=== PATIENT | male | born 1945 | race Caucasian/White ===

== ENCOUNTER 2017-10-07 13:58 | Observation (INO) | payer MEDICARE ==
[~2017-10-07] VITALS: Ht 172.7 cm; Wt 128.3 kg
[2017-10-07 14:19] LABS: BASOPHILS PERCENT AUTO 1 % (0-2); EOSINOPHILS ABSOLUTE AUTO 0.41 K/mm3 (0.00-0.68); EOSINOPHILS PERCENT AUTO 4 % (0-6); Hematocrit 48.4 % (37.0-53.0); Hemoglobin 16.4 g/dL (13.5-17.5); IMMATURE GRAN ABSOLUTE AUTO 0.05 K/mm3 (0.00-0.10); IMMATURE GRAN PERCENT AUTO 0 % (0-1); LYMPHOCYTES ABSOLUTE AUTO 2.19 K/mm3 (0.84-5.20); LYMPHOCYTES PERCENT AUTO 19 % (21-46); MONOCYTES ABSOLUTE AUTO 1.52 K/mm3 (0.16-1.47); MONOCYTES PERCENT AUTO 13 % (4-13); Mean Corpuscular HGB 30.7 pg (26.0-34.0); Mean Corpuscular HGB Conc 33.9 g/dL (31.5-36.5); Mean Corpuscular Volume 91 fL (80-100); Mean Platelet Volume 10.9 fL (9.1-12.4); NEUTROPHILS ABSOLUTE AUTO 7.59 K/mm3 (1.96-9.15); NEUTROPHILS PERCENT AUTO 64 % (41-73); Platelet Count 218 K/mm3 (150-400); RDW Coefficient Variation 14.4 % (11.7-14.2); RDW Standard Deviation 47.6 fL (35.1-46.3); Red Blood Cell Count 5.34 M/mm3 (4.30-5.90); White Blood Cell Count 11.86 K/mm3 (4.00-11.30)
[2017-10-07 14:34] LABS: Prothrombin Time Results 10.3 Sec (9.7-11.5)
[2017-10-07 14:45] LABS: Alanine Aminotransfer (ALT/SGP 130 U/L (12-78); Albumin, Blood 3.5 g/dL (3.4-5.0); Alk Phos 42 U/L (50-136); Anion Gap 10 mmol/L (6-16); Aspartate Aminotrans (AST/SGOT 68 U/L (12-37); Bilirubin, Total 0.5 mg/dL (0.1-1.0); Blood Urea Nitrogen 27 mg/dL (8-24); Bun/Creatinine Ratio 26.2 (12.0-20.0); CO2, Blood 21 mmol/L (21-32); Calcium, Blood 9.3 mg/dL (8.5-10.1); Chloride, Blood 112 mmol/L (98-108); Creatinine, Blood 1.03 mg/dL (0.60-1.20); Globulin, Blood 3.5 g/dL (2.2-4.0); Glomerular Filtration Rate >60 (60-); Glucose, Blood 110 mg/dL (70-99); Magnesium, Blood 2.1 mg/dL (1.6-2.4); Potassium, Blood 4.2 mmol/L (3.5-5.5); Sodium, Blood 143 mmol/L (136-145); Troponin I <0.015 ng/mL (0.000-0.040)
[2017-10-07 15:09] LABS: U Amphetamine Screen Not Detected; U Barbituate Screen Not Detected; U Benzodiazapine Screen Not Detected; U Buprenorphine Screen Not Detected; U Cannabinoids Screen Not Detected; U Cocaine Screen Not Detected; U Methadone Screen Not Detected; U Methamphetamine Screen Not Detected; U Opiates Screen Not Detected; U Oxycodone Screen Not Detected; U Phencyclidine Screen Not Detected; U Propoxyphene Screen Not Detected
[2017-10-07] MEDS ORDERED: ASPI81CH PO (17:38)
[2017-10-07] MEDS ORDERED: LISI5 PO (17:38)
[2017-10-07] MEDS ORDERED: Advair Hfa 230-12 GM (17:38)
[2017-10-07] MEDS ORDERED: ALLO300 PO (17:39)
[2017-10-08 05:30] LABS: BASOPHILS ABSOLUTE AUTO 0.08 K/mm3 (0.00-0.23); BASOPHILS PERCENT AUTO 1 % (0-2); EOSINOPHILS ABSOLUTE AUTO 0.43 K/mm3 (0.00-0.68); EOSINOPHILS PERCENT AUTO 4 % (0-6); Hematocrit 47.3 % (37.0-53.0); IMMATURE GRAN ABSOLUTE AUTO 0.04 K/mm3 (0.00-0.10); IMMATURE GRAN PERCENT AUTO 0 % (0-1); LYMPHOCYTES ABSOLUTE AUTO 2.18 K/mm3 (0.84-5.20); LYMPHOCYTES PERCENT AUTO 22 % (21-46); MONOCYTES ABSOLUTE AUTO 1.03 K/mm3 (0.16-1.47); MONOCYTES PERCENT AUTO 10 % (4-13); Mean Corpuscular HGB 30.2 pg (26.0-34.0); Mean Corpuscular HGB Conc 33.8 g/dL (31.5-36.5); Mean Corpuscular Volume 89 fL (80-100); NEUTROPHILS ABSOLUTE AUTO 6.16 K/mm3 (1.96-9.15); NEUTROPHILS PERCENT AUTO 62 % (41-73); Platelet Count 196 K/mm3 (150-400); RDW Coefficient Variation 14.5 % (11.7-14.2); RDW Standard Deviation 47.4 fL (35.1-46.3); Red Blood Cell Count 5.29 M/mm3 (4.30-5.90); White Blood Cell Count 9.92 K/mm3 (4.00-11.30)
[2017-10-08 05:50] LABS: Anion Gap 9 mmol/L (6-16); Blood Urea Nitrogen 24 mg/dL (8-24); Bun/Creatinine Ratio 30.6 (12.0-20.0); CO2, Blood 26 mmol/L (21-32); Calcium, Blood 9.1 mg/dL (8.5-10.1); Chloride, Blood 108 mmol/L (98-108); Creatinine, Blood 0.79 mg/dL (0.60-1.20); Glomerular Filtration Rate >60 (60-); Glucose, Blood 99 mg/dL (70-99); Potassium, Blood 3.9 mmol/L (3.5-5.5); Sodium, Blood 143 mmol/L (136-145)
[2017-10-08] MEDS ORDERED: LEVSOD50 PO (12:22)
[2017-10-08] MEDS ORDERED: Lopressor 25 mg25 MG PO (12:24)
[2017-10-08] MEDS ORDERED: XARELTO20 MG PO (12:25)
[2017-10-08] MEDS ORDERED: LISI20 PO (12:27)
== END 2017-10-08 13:02 | disposition home or self-care (01) ==
LOC: ER 13:58 → MEDS 13:59
PROVIDERS: Emergency Medicine; Hospitalist
DX: I48.91 Unspecified atrial fibrillation (principal); I48.92 Unspecified atrial flutter; I95.9 Hypotension, unspecified; I10 Essential (primary) hypertension; J45.909 Unspecified asthma, uncomplicated; M10.9 Gout, unspecified; M19.90 Unspecified osteoarthritis, unspecified site; R55 Syncope and collapse; J18.9 Pneumonia, unspecified organism; E03.9 Hypothyroidism, unspecified; R93.8 Abnormal findings on diagnostic imaging of other specified body structures; K21.9 Gastro-esophageal reflux disease without esophagitis; Z79.82 Long term (current) use of aspirin; Z79.899 Other long term (current) drug therapy
CPT/HCPCS: 36415; 71046; 71250; 80048; 80053; 83735; 83880; 84443; 84484; 85025; 85610; 87077; 87081; 93005; 93010; 93306; 94640; 94760; 96361; 96365; 96374; 96375; 99285; G0378; J0456; J0696; J7030; J7050; J7120

== ENCOUNTER → 2018-05-24 | Outpatient (CLI) | payer MEDICARE ==
[~2018-05-24] MED LIST: ALLO300 PO; ASPI81CH PO; Advair Hfa 230-12 GM; LEVSOD50 PO; LISI20 PO; LISI5 PO; Lopressor 25 mg25 MG PO; XARELTO20 MG PO
[2018-05-24 14:36] LABS: BASOPHILS ABSOLUTE AUTO 0.06 K/mm3 (0.00-0.23); BASOPHILS PERCENT AUTO 1 % (0-2); EOSINOPHILS ABSOLUTE AUTO 0.42 K/mm3 (0.00-0.68); EOSINOPHILS PERCENT AUTO 5 % (0-6); Hemoglobin 11.5 g/dL (13.5-17.5); IMMATURE GRAN ABSOLUTE AUTO 0.03 K/mm3 (0.00-0.10); IMMATURE GRAN PERCENT AUTO 0 % (0-1); LYMPHOCYTES ABSOLUTE AUTO 1.62 K/mm3 (0.84-5.20); LYMPHOCYTES PERCENT AUTO 20 % (21-46); MONOCYTES ABSOLUTE AUTO 0.96 K/mm3 (0.16-1.47); MONOCYTES PERCENT AUTO 12 % (4-13); Mean Corpuscular HGB 24.9 pg (26.0-34.0); Mean Corpuscular HGB Conc 31.1 g/dL (31.5-36.5); Mean Corpuscular Volume 80 fL (80-100); NEUTROPHILS ABSOLUTE AUTO 5.19 K/mm3 (1.96-9.15); NEUTROPHILS PERCENT AUTO 63 % (41-73); Platelet Count 192 K/mm3 (150-400); RDW Coefficient Variation 15.9 % (11.7-14.2); RDW Standard Deviation 45.3 fL (35.1-46.3); Red Blood Cell Count 4.61 M/mm3 (4.30-5.90); White Blood Cell Count 8.28 K/mm3 (4.00-11.30)
[2018-05-24 14:40] LABS: Anion Gap 9 mmol/L (6-16); Blood Urea Nitrogen 22 mg/dL (8-24); Bun/Creatinine Ratio 24.2 (12.0-20.0); CO2, Blood 26 mmol/L (21-32); Calcium, Blood 9.1 mg/dL (8.5-10.1); Chloride, Blood 105 mmol/L (98-108); Creatinine, Blood 0.91 mg/dL (0.60-1.20); Glomerular Filtration Rate >60 (60-); Glucose, Blood 103 mg/dL (70-99); Sodium, Blood 140 mmol/L (136-145)
[2018-05-24 16:21] LABS: Troponin I <0.015 ng/mL (0.000-0.040)
== END | disposition home or self-care (01) ==
LOC: LAB SHORT 14:32 → LAB EV 14:32
PROVIDERS: Physician Assistant Surgical
DX: R53.83 Other fatigue (principal)
CPT/HCPCS: 80048; 83880; 84484; 85025

== ENCOUNTER 2018-06-21 06:05 | Day surgery (SDC) | payer MEDICARE ==
--- NOTE | 2018-06-20 14:56 | NUR ---
PT'S ANGIOGRAM RESCHEDULED FOR TOMORROW. 20 G IV DISCONTINUED FROM LEFT AC WITH INTACT CANNULA.
[~2018-06-21] VITALS: Ht 177.8 cm; Wt 142.0 kg
[~2018-06-21 06:05] MED LIST changes: +ALBU90OI6 INH; +ATOR10 PO; +B Complex #11 EACH PO; +CHOL10002 PO; -Lopressor 25 mg25 MG PO; +NITR.4SL SL; +Norco 7.5-3251 EACH PO; +Toprol Xl50 MG PO; +Zantac150 MG PO
--- NOTE | 2018-06-21 11:00 | NUR ---
10CC AIR REMOVED FROM TR BAND. -BLEEDING OR SWELLING.
--- NOTE | 2018-06-21 11:30 | NUR ---
TR BAND REMOVED. PUNCTURE AREA CLEANED WITH NS. CLOTH DOT DRSG PLACED. R WRIST SPLINT REAPPLIED. IV REMOVED.
== END 2018-06-21 11:27 | disposition home or self-care (01) ==
LOC: MHTC 06:05
DX: I20.9 Angina pectoris, unspecified (principal); E66.01 Morbid (severe) obesity due to excess calories; I10 Essential (primary) hypertension; I48.92 Unspecified atrial flutter; Z79.01 Long term (current) use of anticoagulants; K21.9 Gastro-esophageal reflux disease without esophagitis; K57.90 Diverticulosis of intestine, part unspecified, without perforation or abscess without bleeding; Z87.891 Personal history of nicotine dependence; Z79.899 Other long term (current) drug therapy
CPT/HCPCS: 93458; 99152; 99153; C1760; C1769; C1887; C1894; J1644; J2250; J3010; J7030; Q9967

== ENCOUNTER → 2018-09-13 | Outpatient (CLI) | payer MEDICARE ==
[2018-09-12 10:31] LABS: Percent Saturation 9.4 % (20.0-50.0)
[2018-09-12 10:36] LABS: Albumin, Blood 3.5 g/dL (3.4-5.0); Anion Gap 6 mmol/L (6-16); Blood Urea Nitrogen 22 mg/dL (8-24); CO2, Blood 27 mmol/L (21-32); Calcium, Blood 9.2 mg/dL (8.5-10.1); Chloride, Blood 107 mmol/L (98-108); Glomerular Filtration Rate >60 (60-); Glucose, Blood 119 mg/dL (70-99); Phosphorus, Blood 3.3 mg/dL (2.5-4.9); Potassium, Blood 3.8 mmol/L (3.5-5.5); Sodium, Blood 140 mmol/L (136-145)
[2018-09-13 10:11] LABS: Protein, Urine Quantitative 24.7 mg/dL (0.0-11.9)
[2018-09-13 14:22] LABS: Stool Occult Bld Immuno 1 Negative (NEGATIVE)
== END | disposition home or self-care (01) ==
LOC: LAB SHORT 08:00 → LAB 08:00 → LAB FUT 09-04 10:15
PROVIDERS: Internal Medicine Nephrology
DX: Z12.11 Encounter for screening for malignant neoplasm of colon (principal); N18.2 Chronic kidney disease, stage 2 (mild); D63.1 Anemia in chronic kidney disease; N25.81 Secondary hyperparathyroidism of renal origin; E55.9 Vitamin D deficiency, unspecified; E78.00 Pure hypercholesterolemia, unspecified; D51.8 Other vitamin B12 deficiency anemias; D52.8 Other folate deficiency anemias; D50.9 Iron deficiency anemia, unspecified; R76.9 Abnormal immunological finding in serum, unspecified; R94.5 Abnormal results of liver function studies; R94.6 Abnormal results of thyroid function studies
CPT/HCPCS: 36415; 80069; 81050; 82043; 82274; 82306; 82570; 82607; 82728; 82746; 83540; 83550; 83970; 84156; 84443; 85018

== ENCOUNTER 2018-10-18 07:08 | Day surgery (SDC) | payer MEDICARE ==
[~2018-10-18] VITALS: Ht 177.8 cm; Wt 142.7 kg
[2018-10-18] MEDS ORDERED: CLOP75 PO (07:35)
[2018-10-18] MEDS ORDERED: FERSU300 PO (07:37)
--- NOTE | 2018-10-18 11:35 | NUR ---
PT TO RECOVERY ROOM POST PROCEDURE. PT IS DROWSY, BUT ROUSABLE AND ANSWERS QUESTIONS APPROPRIATELY. PT REPORTED FEELING NAUSEATED, NO EMESIS-TAKING SMALL SIPS OF WATER RECEIVED 8 MG ZORFRAN. PT REPORTS MOD DISCOMFOT L SHOULDER, 08/23; DENIES THE NEED FOR MEDICATION. MONITOR AFIB/AFLUTTER WITH OCCASIONAL A PACING 60'S, B/P 128/82, SPO2 94% RA. L CHEST SITE TELFA AND TEGADERM DRSG IN PLACE C,D,1.
--- NOTE | 2018-10-18 11:48 | NUR ---
PT REMAINS DROWSY, REPORTS NAUSEA RESOLVED AFTER ZOFRAN. PT REPORTS L SHOULDER DISCOMFORT REMAINS 5/, REQUESTING TYLENOL-MESSAGE LEFT AT DR MARI'S OFFICE.
--- NOTE | 2018-10-18 12:05 | NUR ---
PT RECEIVED 650MG PO TYLENOL FOR LEFT SHOULDER DISCOMFORT.
--- NOTE | 2018-10-18 16:31 | NUR ---
ASSUMED CARE PT ARRIVED TO UNIT VIA WHEELCHAIR. VS STABLE. O2 SATS REMAIN ABOVE 90% ON RA. PT COMPLAINS OF SHOULDER PAIN IN LEFT SHOULDER WALL. DRESSING INTACT WITH NO SWELLING, BLEEDING, OR HEMATOMA NOTED. PT STATES PAIN IS TOLERABLE. HR SHOWS SINUS WITH OCCAISIONAL PVC. RATE IS 80. PT ORIENTED TO ROOM. WILL CONTINUE TO MONITOR CLOSELY.
--- NOTE | 2018-10-18 17:58 | NUR ---
SHIFT SUMMARY PT STABLE AT THIS TIME. HR SHOWS NSR WITH A RATE 80'S. NO OTHER CHANGES AT THIS TIME. PT ABLE TO TRANSFER TO BATHROOM NEEDED WITH SBA. NO OTHER CHANGES AT THIS TIME. WILL CONTINUE TO MONITOR AND REPORT TO ONCOMING RN. CALL LIGHT IN REACH.
--- NOTE | 2018-10-19 05:56 | NUR ---
PATIENT IN AND OUT OF AFIB/AFLUTTER. PATIENT DENIES ANY SYMPTOMS. PATIENT HAS NEW PACEMAKER UP LEFT CHEST. DRESSING INTACT WITH SMALL AMOUT OF DRAINAGE. PATIENT GIVEN APAP AT 0030. PATIENT HAD SOME DIFFICULTIES GETTING CPAP ON DUE TO NOT BEING ABLE TO BRING UP LEFT ARM. PATIENT TROUBLE SLEEPING IN THE BED SLEPT IN RECLINER ON AND OFF THROUGH THE NIGHT.
[2018-10-19] MEDS ORDERED: CEPH500 PO (10:13)
--- NOTE | 2018-10-19 11:21 | NUR ---
PT ALERT AND ORIENTED. VS STABLE. ORDERS FOR DISCHARGE THIS AM. DR. MILLIGAN IN TO DISCUSS AFTER CARE OF PACEMAKER. PT EDUCATED ON ACTIVITY RESTRICTIONS. PT EDUCATED ON NEW MEDICATION REGIMEN. IV REMOVED. TELEMETRY REMOVED. ALL QUESTIONS ANSWERED. PT TO BE TAKEN OUT BY WHEELCHAIR.
== END 2018-10-19 11:25 | disposition home or self-care (01) ==
LOC: PCU 07:08 → MHTC 07:08 → PCU 16:12 → MHTC 10-19 11:25
PROC: 02H63JZ Insertion of Pacemaker Lead into Right Atrium, Percutaneous Approach (ICD-10-PCS; principal; 2018-10-18)
PROC: 0JH606Z Insertion of Pacemaker, Dual Chamber into Chest Subcutaneous Tissue and Fascia, Open Approach (ICD-10-PCS; principal; 2018-10-18)
PROC: 02HK3JZ Insertion of Pacemaker Lead into Right Ventricle, Percutaneous Approach (ICD-10-PCS; principal; 2018-10-18)
DX: I49.5 Sick sinus syndrome (principal); I48.92 Unspecified atrial flutter; I48.91 Unspecified atrial fibrillation; I44.0 Atrioventricular block, first degree; I45.10 Unspecified right bundle-branch block; I10 Essential (primary) hypertension; E78.5 Hyperlipidemia, unspecified; G47.33 Obstructive sleep apnea (adult) (pediatric); N40.0 Benign prostatic hyperplasia without lower urinary tract symptoms; K76.0 Fatty (change of) liver, not elsewhere classified; E66.01 Morbid (severe) obesity due to excess calories; D64.9 Anemia, unspecified; R42 Dizziness and giddiness; K57.90 Diverticulosis of intestine, part unspecified, without perforation or abscess without bleeding; K21.9 Gastro-esophageal reflux disease without esophagitis; Z87.891 Personal history of nicotine dependence; Z79.899 Other long term (current) drug therapy; Z79.02 Long term (current) use of antithrombotics/antiplatelets; Z79.01 Long term (current) use of anticoagulants
CPT/HCPCS: 33208; 71045; 71046; 99152; 99153; A9270; C1785; C1898; J0360; J0690; J1644; J2250; J2405; J3010; J7030; J7040

== ENCOUNTER → 2020-04-19 | Outpatient (CLI) | payer MEDICARE, BC ==
[~2020-04-19] MED LIST changes: +CEPH500 PO; +CLOP75 PO; +FERSU300 PO
[2020-04-19 13:55] LABS: BASOPHILS ABSOLUTE AUTO 0.06 K/mm3 (0.00-0.23); BASOPHILS PERCENT AUTO 1 % (0-2); EOSINOPHILS ABSOLUTE AUTO 0.19 K/mm3 (0.00-0.68); EOSINOPHILS PERCENT AUTO 2 % (0-6); Hematocrit 47.2 % (37.0-53.0); IMMATURE GRAN ABSOLUTE AUTO 0.03 K/mm3 (0.00-0.10); IMMATURE GRAN PERCENT AUTO 0 % (0-1); LYMPHOCYTES ABSOLUTE AUTO 1.14 K/mm3 (0.84-5.20); LYMPHOCYTES PERCENT AUTO 13 % (21-46); MONOCYTES ABSOLUTE AUTO 0.79 K/mm3 (0.16-1.47); MONOCYTES PERCENT AUTO 9 % (4-13); Mean Corpuscular HGB Conc 31.8 g/dL (31.5-36.5); Mean Corpuscular Volume 88 fL (80-100); NEUTROPHILS ABSOLUTE AUTO 6.66 K/mm3 (1.96-9.15); NEUTROPHILS PERCENT AUTO 75 % (41-73); Platelet Count 176 K/mm3 (150-400); RDW Coefficient Variation 17.6 % (11.7-14.2); RDW Standard Deviation 56.7 fL (35.1-46.3); Red Blood Cell Count 5.35 M/mm3 (4.30-5.90); White Blood Cell Count 8.87 K/mm3 (4.00-11.30)
[2020-04-19 14:04] LABS: Mean Platelet Volume 12.1 fL (9.1-12.4)
== END ==
LOC: LAB 13:00 → LAB SHORT 13:00
PROVIDERS: Family Medicine
DX: D64.9 Anemia, unspecified (principal)
CPT/HCPCS: 82728; 83540; 83550; 85025

== ENCOUNTER → 2021-06-01 | Outpatient (CLI) | payer MEDICARE, BC ==
[~2021-06-01] MED LIST changes: +ATOR20 PO; +Cialis5 MG; +DILT120 PO; +ELEMENTAL ZINC30 MG PO; +FLUT1DIS2; +MAGCHL64ER; +MAGNESIUM250 MG PO; +PRESERVISION A1 EAC1; +Primidone50 MG PO; +Prinivil10 MG PO; +Vitamin B Comple1 EA PO
[2021-06-01 10:39] LABS: BASOPHILS ABSOLUTE AUTO 0.04 K/mm3 (0.00-0.23); BASOPHILS PERCENT AUTO 0 % (0-2); EOSINOPHILS ABSOLUTE AUTO 0.13 K/mm3 (0.00-0.68); EOSINOPHILS PERCENT AUTO 1 % (0-6); Hematocrit 36.6 % (37.0-53.0); Hemoglobin 11.5 g/dL (13.5-17.5); IMMATURE GRAN ABSOLUTE AUTO 0.04 K/mm3 (0.00-0.10); IMMATURE GRAN PERCENT AUTO 0 % (0-1); LYMPHOCYTES ABSOLUTE AUTO 0.89 K/mm3 (0.84-5.20); LYMPHOCYTES PERCENT AUTO 7 % (21-46); MONOCYTES ABSOLUTE AUTO 1.28 K/mm3 (0.16-1.47); MONOCYTES PERCENT AUTO 10 % (4-13); Mean Corpuscular HGB 24.8 pg (26.0-34.0); Mean Corpuscular HGB Conc 31.4 g/dL (31.5-36.5); Mean Corpuscular Volume 79 fL (80-100); Mean Platelet Volume 10.8 fL (9.1-12.4); NEUTROPHILS ABSOLUTE AUTO 10.18 K/mm3 (1.96-9.15); NEUTROPHILS PERCENT AUTO 81 % (41-73); Platelet Count 257 K/mm3 (150-400); RDW Standard Deviation 49.1 fL (35.1-46.3); Red Blood Cell Count 4.63 M/mm3 (4.30-5.90); White Blood Cell Count 12.56 K/mm3 (4.00-11.30)
[2021-06-01 10:46] LABS: Anion Gap 11 mmol/L (6-16); Blood Urea Nitrogen 26 mg/dL (8-24); Bun/Creatinine Ratio 35.6 (12.0-20.0); CO2, Blood 24 mmol/L (21-32); Calcium, Blood 9.6 mg/dL (8.5-10.1); Chloride, Blood 106 mmol/L (98-108); Creatinine, Blood 0.73 mg/dL (0.60-1.20); Glomerular Filtration Rate >60 (60-); Glucose, Blood 112 mg/dL (70-99); Potassium, Blood 4.4 mmol/L (3.5-5.5); Sodium, Blood 141 mmol/L (136-145)
== END | disposition home or self-care (01) ==
LOC: LAB SHORT 10:34 → LAB 10:34
PROVIDERS: Family Medicine
DX: R07.9 Chest pain, unspecified (principal)
CPT/HCPCS: 80048; 84484; 85025; 85379

== ENCOUNTER 2021-06-03 13:07 | Day surgery (SDC) | payer MEDICARE, BC ==
[~2021-06-03] VITALS: Ht 203.2 cm; Wt 123.3 kg
[~2021-06-03 13:07] MED LIST changes: -FLUT1DIS2; -MAGCHL64ER; -PRESERVISION A1 EAC1
[2021-06-03] MEDS ORDERED: FLUT1DIS2 (14:08)
[2021-06-03] MEDS ORDERED: MAGCHL64ER (14:09)
[2021-06-03] MEDS ORDERED: PRESERVISION A1 EAC1 (14:09)
--- NOTE | 2021-06-03 14:26 | NUR ---
06/03/21 1426 Shantel Velez 1 TRY DWIGHT STAN[place]
== END 2021-06-03 17:15 | disposition home or self-care (01) ==
LOC: ORSCSDS 13:07
PROVIDERS: Internal Medicine Gastroenterology
PROC: 0DBM8ZX Excision of Descending Colon, Via Natural or Artificial Opening Endoscopic, Diagnostic (ICD-10-PCS; principal; 2021-06-03 14:45)
PROC: 0DBK8ZX Excision of Ascending Colon, Via Natural or Artificial Opening Endoscopic, Diagnostic (ICD-10-PCS; principal; 2021-06-03 14:45)
PROC: 0DBH8ZX Excision of Cecum, Via Natural or Artificial Opening Endoscopic, Diagnostic (ICD-10-PCS; principal; 2021-06-03 14:45)
PROC: 0DBL8ZX Excision of Transverse Colon, Via Natural or Artificial Opening Endoscopic, Diagnostic (ICD-10-PCS; principal; 2021-06-03 14:45)
DX: D50.9 Iron deficiency anemia, unspecified (principal); Z86.010 Personal history of colon polyps; D12.2 Benign neoplasm of ascending colon; D12.0 Benign neoplasm of cecum; D12.3 Benign neoplasm of transverse colon; D12.4 Benign neoplasm of descending colon; K64.8 Other hemorrhoids; G47.33 Obstructive sleep apnea (adult) (pediatric); I48.0 Paroxysmal atrial fibrillation; Z79.899 Other long term (current) drug therapy; J45.909 Unspecified asthma, uncomplicated; Z87.891 Personal history of nicotine dependence; E03.9 Hypothyroidism, unspecified; E78.5 Hyperlipidemia, unspecified; K21.9 Gastro-esophageal reflux disease without esophagitis; I48.19 Other persistent atrial fibrillation; Z95.0 Presence of cardiac pacemaker; Z79.02 Long term (current) use of antithrombotics/antiplatelets; Z79.01 Long term (current) use of anticoagulants; I25.10 Atherosclerotic heart disease of native coronary artery without angina pectoris; E66.01 Morbid (severe) obesity due to excess calories; Z68.39 Body mass index [BMI] 39.0-39.9, adult
CPT/HCPCS: 88305; J2704; J7120

== ENCOUNTER → 2021-06-19 | Outpatient (CLI) | payer MEDICARE, BC ==
[~2021-06-19] MED LIST changes: +FLUT1DIS2; +MAGCHL64ER; +PRESERVISION A1 EAC1
== END | disposition home or self-care (01) ==
LOC: LAB 17:12 → LAB SHORT 17:12
DX: S61.451D Open bite of right hand, subsequent encounter (principal)
CPT/HCPCS: 87070; 87075; 87205

== ENCOUNTER → 2023-04-24 | Outpatient (CLI) | payer MEDICARE, BC ==
[~2023-04-24] MED LIST changes: +CALCIUM 500 MG1 EAC2 PO
[2023-04-24 14:47] LABS: BASOPHILS ABSOLUTE AUTO 0.06 K/mm3 (0.00-0.23); BASOPHILS PERCENT AUTO 1 % (0-2); EOSINOPHILS ABSOLUTE AUTO 0.28 K/mm3 (0.00-0.68); EOSINOPHILS PERCENT AUTO 3 % (0-6); Hematocrit 28.7 % (37.0-53.0); Hemoglobin 7.5 g/dL (13.5-17.5); IMMATURE GRAN ABSOLUTE AUTO 0.05 K/mm3 (0.00-0.10); IMMATURE GRAN PERCENT AUTO 1 % (0-1); LYMPHOCYTES ABSOLUTE AUTO 1.17 K/mm3 (0.84-5.20); LYMPHOCYTES PERCENT AUTO 13 % (21-46); MONOCYTES ABSOLUTE AUTO 0.86 K/mm3 (0.16-1.47); MONOCYTES PERCENT AUTO 10 % (4-13); Mean Corpuscular HGB 16.7 pg (26.0-34.0); Mean Corpuscular HGB Conc 26.1 g/dL (31.5-36.5); Mean Corpuscular Volume 64 fL (80-100); NEUTROPHILS ABSOLUTE AUTO 6.65 K/mm3 (1.96-9.15); NEUTROPHILS PERCENT AUTO 73 % (41-73); Platelet Count 268 K/mm3 (150-400); RDW Coefficient Variation 23.2 % (11.7-14.2); RDW Standard Deviation 49.5 fL (35.1-46.3); Red Blood Cell Count 4.49 M/mm3 (4.30-5.90); White Blood Cell Count 9.07 K/mm3 (4.00-11.30)
[2023-04-24 14:54] LABS: Albumin, Blood 3.7 g/dL (3.4-5.0); Albumin/Globulin Ratio 1.1 (0.8-1.8); Bilirubin, Total 0.4 mg/dL (0.1-1.0); Bun/Creatinine Ratio 24.7 (12.0-20.0); Calcium, Blood 9.6 mg/dL (8.5-10.1); Creatinine, Blood 0.85 mg/dL (0.60-1.20); Globulin, Blood 3.5 g/dL (2.2-4.0); Total Protein, Blood 7.2 g/dL (6.4-8.2)
== END | disposition home or self-care (01) ==
LOC: LAB 14:39 → LAB SHORT 14:39
PROVIDERS: Physician Assistant
DX: D64.9 Anemia, unspecified (principal); R07.9 Chest pain, unspecified
CPT/HCPCS: 80053; 82728; 83540; 83550; 84484; 85025

== ENCOUNTER 2023-04-25 00:59 | Day surgery (SDC) | payer MEDICARE, BC ==
[~2023-04-25 00:59] MED LIST changes: -CALCIUM 500 MG1 EAC2 PO
[2023-04-25 14:23] VITALS: BP 171/99
[2023-04-25] MEDS ORDERED: CALCIUM 500 MG1 EAC2 PO (14:26)
== END 2023-04-25 15:28 | disposition home or self-care (01) ==
LOC: ATC 00:59
DX: E61.1 Iron deficiency (principal); M54.12 Radiculopathy, cervical region; Z87.39 Personal history of other diseases of the musculoskeletal system and connective tissue
CPT/HCPCS: 96365; J2916

== ENCOUNTER 2023-04-27 02:06 | Day surgery (SDC) | payer MEDICARE, BC ==
[~2023-04-27 02:06] MED LIST changes: +CALCIUM 500 MG1 EAC2 PO
[2023-04-27 15:55] VITALS: BP 148/80
== END 2023-04-27 16:59 | disposition home or self-care (01) ==
LOC: ATC 02:06
DX: D50.9 Iron deficiency anemia, unspecified (principal); E03.9 Hypothyroidism, unspecified; I48.0 Paroxysmal atrial fibrillation; I49.5 Sick sinus syndrome; N40.1 Benign prostatic hyperplasia with lower urinary tract symptoms; M54.12 Radiculopathy, cervical region; M81.0 Age-related osteoporosis without current pathological fracture
CPT/HCPCS: 96365; J2916

== ENCOUNTER 2023-04-28 02:44 | Day surgery (SDC) | payer MEDICARE, BC ==
[2023-04-28 09:02] VITALS: BP 157/80
[2023-04-28 10:10] VITALS: BP 140/77
== END 2023-04-28 10:12 | disposition home or self-care (01) ==
LOC: ATC 02:44
DX: D50.9 Iron deficiency anemia, unspecified (principal); M54.12 Radiculopathy, cervical region; M81.0 Age-related osteoporosis without current pathological fracture; Z87.39 Personal history of other diseases of the musculoskeletal system and connective tissue
CPT/HCPCS: 96365; J2916

== ENCOUNTER 2023-04-29 03:22 | Day surgery (SDC) | payer MEDICARE, BC ==
[2023-04-29 09:59] VITALS: BP 158/90
== END 2023-04-29 11:08 | disposition home or self-care (01) ==
LOC: ATC 03:22
DX: D50.9 Iron deficiency anemia, unspecified (principal); M54.12 Radiculopathy, cervical region; M81.0 Age-related osteoporosis without current pathological fracture; Z87.39 Personal history of other diseases of the musculoskeletal system and connective tissue
CPT/HCPCS: 96365; J2916

== ENCOUNTER 2023-08-22 04:32 | Day surgery (SDC) | payer MEDICARE, BC ==
[2023-08-22 10:16] VITALS: BP 113/72
== END 2023-08-22 11:15 | disposition home or self-care (01) ==
LOC: ATC 04:32
DX: D50.9 Iron deficiency anemia, unspecified (principal); J45.909 Unspecified asthma, uncomplicated; E03.9 Hypothyroidism, unspecified; I48.0 Paroxysmal atrial fibrillation; K21.9 Gastro-esophageal reflux disease without esophagitis; G47.33 Obstructive sleep apnea (adult) (pediatric); E66.01 Morbid (severe) obesity due to excess calories; Z68.39 Body mass index [BMI] 39.0-39.9, adult; Z88.8 Allergy status to other drugs, medicaments and biological substances; Z91.018 Allergy to other foods; Z79.899 Other long term (current) drug therapy; Z87.891 Personal history of nicotine dependence

== ENCOUNTER 2023-08-23 03:22 | Day surgery (SDC) | payer MEDICARE, BC ==
[~2023-08-23 03:22] MED LIST changes: +Sod Ferric Gluc Complx/Sucrose 125 MG in NS 100 ML IV SCH
[2023-08-23 10:05] VITALS: BP 148/90
== END 2023-08-23 11:10 | disposition home or self-care (01) ==
LOC: ATC 03:22
DX: D50.9 Iron deficiency anemia, unspecified (principal); E03.9 Hypothyroidism, unspecified; E78.5 Hyperlipidemia, unspecified; I10 Essential (primary) hypertension; I25.10 Atherosclerotic heart disease of native coronary artery without angina pectoris; I48.0 Paroxysmal atrial fibrillation; J45.909 Unspecified asthma, uncomplicated; K21.9 Gastro-esophageal reflux disease without esophagitis; Z88.8 Allergy status to other drugs, medicaments and biological substances; Z91.018 Allergy to other foods
CPT/HCPCS: 96365; J2916

== ENCOUNTER 2023-08-24 05:06 | Day surgery (SDC) | payer MEDICARE, BC ==
[2023-08-24 09:53] VITALS: BP 156/84
== END 2023-08-24 11:00 | disposition home or self-care (01) ==
LOC: ATC 05:06
DX: D50.9 Iron deficiency anemia, unspecified (principal); I10 Essential (primary) hypertension; I25.10 Atherosclerotic heart disease of native coronary artery without angina pectoris; I48.0 Paroxysmal atrial fibrillation; E03.9 Hypothyroidism, unspecified; E78.5 Hyperlipidemia, unspecified; E66.01 Morbid (severe) obesity due to excess calories; J45.909 Unspecified asthma, uncomplicated; Z88.8 Allergy status to other drugs, medicaments and biological substances; Z79.899 Other long term (current) drug therapy; Z87.891 Personal history of nicotine dependence; Z68.39 Body mass index [BMI] 39.0-39.9, adult

== ENCOUNTER 2023-08-25 03:38 | Day surgery (SDC) | payer MEDICARE, BC ==
[2023-08-25 09:00] VITALS: BP 148/75
== END 2023-08-25 10:00 | disposition home or self-care (01) ==
LOC: ATC 03:38
DX: D50.9 Iron deficiency anemia, unspecified (principal); I10 Essential (primary) hypertension; I25.10 Atherosclerotic heart disease of native coronary artery without angina pectoris; I48.0 Paroxysmal atrial fibrillation; J45.909 Unspecified asthma, uncomplicated; E03.9 Hypothyroidism, unspecified; E78.5 Hyperlipidemia, unspecified; E66.01 Morbid (severe) obesity due to excess calories; Z68.39 Body mass index [BMI] 39.0-39.9, adult; Z88.8 Allergy status to other drugs, medicaments and biological substances; Z91.018 Allergy to other foods; Z79.899 Other long term (current) drug therapy; Z87.891 Personal history of nicotine dependence

== ENCOUNTER → 2023-10-10 | Outpatient (CLI) | payer MEDICARE, BC ==
[~2023-10-10] MED LIST changes: -Sod Ferric Gluc Complx/Sucrose 125 MG in NS 100 ML IV SCH
[2023-10-10 20:00] LABS: Percent Saturation 8.7 % (20.0-50.0)
== END | disposition home or self-care (01) ==
LOC: LAB 16:01 → LAB SHORT 16:01
PROVIDERS: Internal Medicine Hematology & Oncology
DX: D50.8 Other iron deficiency anemias (principal)
CPT/HCPCS: 82728; 83540; 83550

== ENCOUNTER 2024-09-17 06:45 | Day surgery (SDC) | payer MEDICARE, BC ==
[~2024-09-17] VITALS: Ht 180.3 cm; Wt 106.8 kg
[2024-09-17] MEDS ORDERED: BUDESONIDE0.5 MG/2 M (07:12)
[2024-09-17] MEDS ORDERED: XGEVA120 MG/1.1 (07:13)
[2024-09-17] MEDS ORDERED: PREG25 (07:13)
[2024-09-17] MEDS ORDERED: ERLEADA240 MG (07:13)
[2024-09-17] MEDS ORDERED: TRULICITY4.5 MG/0.5 (07:13)
[2024-09-17] MEDS ORDERED: TRELSTAR (07:19)
[2024-09-17] MEDS ORDERED: KETO15TC (07:21)
[2024-09-17] MEDS ORDERED: [UNRECOGNIZED DRUG - OTHER] (07:21)
[2024-09-17] MEDS ORDERED: VENTOLIN (07:22)
[2024-09-17] MEDS ORDERED: DOCU100 (07:22)
[2024-09-17] MEDS ORDERED: CALCIUM 600 +1 EA11 (07:24)
[2024-09-17] MEDS ORDERED: VITAMIN E 180 MG (07:24)
[2024-09-17] MEDS ORDERED: MAGNESIUM (07:26)
[2024-09-17] MEDS ORDERED: COLLAGEN 15001 EACH (07:26)
[2024-09-17] MEDS ORDERED: ZINC15 (07:27)
[2024-09-17] MEDS ORDERED: propofoL 50 ML IV ONE ×2 (07:42→08:26)
[2024-09-17] MEDS ORDERED: Lidocaine HCl 4% 5 ML SDA ONE (07:44)
[2024-09-17] MEDS ORDERED: Lactated Ringer's 1,000 ML IV ONE (08:18)
--- NOTE | 2024-09-17 08:28 | NUR ---
09/17/24 0828 JAMIL FRANCIS LIDDanisha 4% 3ML ATOMIZED PRIOR TO EXAM PER
[2024-09-17 09:59] VITALS: BP 105/82
--- NOTE | 2024-09-17 10:00 | NUR ---
09/17/24 1000 LOAN GUIDRY WAITING ON SON, RAFAEL TO PICK HIM UP. PT IN ROOM WITH COFFEE, WATER, COOKIES, AND WARM BLANKETS
== END 2024-09-17 09:30 | disposition home or self-care (01) ==
LOC: ORSCSDS 06:45
PROVIDERS: Internal Medicine Gastroenterology
PROC: 0DB78ZX Excision of Stomach, Pylorus, Via Natural or Artificial Opening Endoscopic, Diagnostic (ICD-10-PCS; principal; 2024-09-17 08:00)
PROC: 0DBK8ZX Excision of Ascending Colon, Via Natural or Artificial Opening Endoscopic, Diagnostic (ICD-10-PCS; principal; 2024-09-17 08:00)
PROC: 0DB98ZX Excision of Duodenum, Via Natural or Artificial Opening Endoscopic, Diagnostic (ICD-10-PCS; principal; 2024-09-17 08:00)
DX: D50.9 Iron deficiency anemia, unspecified (principal); Z86.0100 Personal history of colon polyps, unspecified; K21.9 Gastro-esophageal reflux disease without esophagitis; D12.2 Benign neoplasm of ascending colon; K57.30 Diverticulosis of large intestine without perforation or abscess without bleeding; I12.9 Hypertensive chronic kidney disease with stage 1 through stage 4 chronic kidney disease, or unspecified chronic kidney disease; N18.9 Chronic kidney disease, unspecified; I25.10 Atherosclerotic heart disease of native coronary artery without angina pectoris; G47.33 Obstructive sleep apnea (adult) (pediatric); Z87.891 Personal history of nicotine dependence; J44.89 Other specified chronic obstructive pulmonary disease; E66.9 Obesity, unspecified; Z68.39 Body mass index [BMI] 39.0-39.9, adult; Z79.899 Other long term (current) drug therapy; Z79.01 Long term (current) use of anticoagulants
CPT/HCPCS: 82947; 88305; 88342; J2003; J2704

== ENCOUNTER → 2024-12-22 | Outpatient (CLI) | payer MEDICARE, BC ==
[~2024-12-22] MED LIST changes: +BUDESONIDE0.5 MG/2 M; +CALCIUM 600 +1 EA11; +COLLAGEN 15001 EACH; +DOCU100; +ERLEADA240 MG; +KETO15TC; +MAGNESIUM; +PREG25; +TRELSTAR; +TRULICITY4.5 MG/0.5; +VENTOLIN; +VITAMIN E 180 MG; +XGEVA120 MG/1.1; +ZINC15; +[UNRECOGNIZED DRUG - OTHER]
== END ==
LOC: LAB SHORT 10:48 → LAB 10:48
DX: J47.9 Bronchiectasis, uncomplicated (principal)
CPT/HCPCS: 87070; 87205

== ENCOUNTER → 2024-12-23 | Outpatient (CLI) | payer MEDICARE, BC | LOC: LAB SHORT 07:49 → LAB 07:49 | DX: J47.9 Bronchiectasis, uncomplicated (principal) | CPT/HCPCS: 87116 ==

== ENCOUNTER → 2024-12-24 | Outpatient (CLI) | payer MEDICARE, BC | LOC: LAB SHORT 08:15 → LAB 08:15 → LAB FUT 12-17 08:00 | DX: J47.9 Bronchiectasis, uncomplicated (principal) | CPT/HCPCS: 87116 ==